=== PATIENT | female | born 1965 | race Asian ===

== ENCOUNTER 2018-12-18 09:33 | Outpatient (CLI) | payer BC ==
[2018-12-18] MEDS ORDERED: ALPR0.5T6 PO (10:06)
[2018-12-18] MEDS ORDERED: ACET325T14 PO (10:06)
== END 2018-12-18 23:59 | disposition home or self-care (01) ==
LOC: STAR 09:33
PROVIDERS: ATTEND Surgery
DX: Z02.9 Encounter for administrative examinations, unspecified (principal)

== ENCOUNTER 2018-12-27 08:48 | Day surgery (SDC) | payer BC ==
[~2018-12-27] VITALS: Ht 154.9 cm; Wt 60.6 kg
[~2018-12-27 08:48] MED LIST: ACET325T14 PO; ALPR0.5T6 PO
[2018-12-27] MEDS ORDERED: LACTATED RINGERS 1,000 ML IV SCH (09:16)
[2018-12-27 09:49] VITALS: BP 126/79
[2018-12-27 10:19] LABS: HCG UR SG 1.017 (1.003-1.030)
[2018-12-27] MEDS ORDERED: FENTANYL PF 250 MCG/5ML ONE (10:59)
[2018-12-27] MEDS ORDERED: MIDAZOLAM 1 MG/ML, 2ML ONE (10:59)
[2018-12-27] MEDS ORDERED: EPINEPHRINE 1 MG/ML, 1ML ONE (11:16)
[2018-12-27] MEDS ORDERED: CLINDAMYCIN 150 MG/ML, 6ML ONE (11:16)
[2018-12-27] MEDS ORDERED: BUPIVACAINE/PF 0.5% ONE (11:16)
[2018-12-27] MEDS ORDERED: LABETALOL 5MG/ML, 20ML IV PRN (11:30)
[2018-12-27] MEDS ORDERED: ACETAMINOPHEN 325 MG TABLET PO PRN (11:30)
[2018-12-27] MEDS ORDERED: OXYcodone 5 MG/5 ML ORAL.SOL UDC PO PRN (11:30)
[2018-12-27] MEDS ORDERED: HYDROmorphone 2 MG/ML, 1ML IVPush PRN (11:30)
[2018-12-27] MEDS ORDERED: hydrALAzine 20 MG/ML, 1ML IV PRN (11:30)
[2018-12-27] MEDS ORDERED: FENTANYL PF 100 MCG/2ML IV PRN (11:30)
[2018-12-27] MEDS ORDERED: MEPERIDINE/PF 25MG/ML,1ML IVPush PRN (11:30)
[2018-12-27] MEDS ORDERED: PROMETHAZINE 25 MG/ML, 1ML IV PRN (11:30)
[2018-12-27] MEDS ORDERED: ALBUTEROL SULFATE 2.5 MG/3 ML NPPB PRN (11:30)
[2018-12-27] MEDS ORDERED: KETOROLAC 30 MG/1 ML IV PRN (11:30)
[2018-12-27] MEDS ORDERED: DIAZEPAM 5 MG/ML, 2ML IVPush PRN (11:30)
[2018-12-27] MEDS ORDERED: SUGAMMADEX 200 MG/2 ML IVPush ONE (11:45)
[2018-12-27] MEDS ORDERED: FENTANYL PF 100 MCG/2ML ONE (12:00)
[2018-12-27] MEDS ORDERED: KETOROLAC 30 MG/1 ML ONE (12:00)
[2018-12-27] MEDS ORDERED: ACETAMINOPHEN 650 MG/20.3 ML UDC ONE (12:00)
[2018-12-27] MEDS ORDERED: OXYcodone 5 MG/5 ML ORAL.SOL UDC ONE (12:01)
[2018-12-27] MEDS ORDERED: NEOSTIGMINE 1 MG/ML, 10ML ONE (12:14)
[2018-12-27] MEDS ORDERED: PROPOFOL 10 MG/ML, 20ML ONE (12:14)
[2018-12-27] MEDS ORDERED: GLYCOPYRROLATE 0.2MG/1ML, 5ML ONE (12:14)
[2018-12-27] MEDS ORDERED: SUCCINYLCHOLINE 20 MG/ML, 10ML ONE (12:14)
[2018-12-27] MEDS ORDERED: DEXAMETHASONE 4 MG/ML, 1ML ONE (12:14)
[2018-12-27] MEDS ORDERED: ONDANSETRON 2MG/ML, 2ML ONE (12:14)
[2018-12-27] MEDS ORDERED: CEFAZOLIN 1,000 MG ONE (12:14)
[2018-12-27] MEDS ORDERED: ROCURONIUM 10MG/ML,5ML ONE (12:14)
== END 2018-12-27 15:20 | disposition home or self-care (01) ==
LOC: OUT 08:48
PROVIDERS: ATTEND Surgery
DX: K40.90 Unilateral inguinal hernia, without obstruction or gangrene, not specified as recurrent (principal); F41.9 Anxiety disorder, unspecified; E78.5 Hyperlipidemia, unspecified; Z72.89 Other problems related to lifestyle; Z79.899 Other long term (current) drug therapy; Z88.0 Allergy status to penicillin; Z88.2 Allergy status to sulfonamides; Z88.8 Allergy status to other drugs, medicaments and biological substances; Z83.3 Family history of diabetes mellitus; Z82.49 Family history of ischemic heart disease and other diseases of the circulatory system; Z83.49 Family history of other endocrine, nutritional and metabolic diseases
CPT/HCPCS: 49650; 81025; C1781; J0171; J0330; J0690; J1100; J1885; J2250; J2405; J2704; J2710; J3010; J7120; S2900